=== PATIENT | female | born 1980 | race Caucasian/White ===

== ENCOUNTER 2021-12-31 13:38 | Emergency (ER) | payer OTHER ==
[~2021-12-31] VITALS: Ht 167.6 cm; Wt 62.1 kg
[2021-12-31 13:40] VITALS: BP_SYST 133
== END 2021-12-31 14:40 | disposition home or self-care (01) ==
LOC: SED 13:38
DX: Z00.00 Encounter for general adult medical examination without abnormal findings (principal); R11.0 Nausea; R19.7 Diarrhea, unspecified; I10 Essential (primary) hypertension; J45.909 Unspecified asthma, uncomplicated
CPT/HCPCS: 99281